=== PATIENT | female | born 1995 | race Caucasian/White ===

== ENCOUNTER 2020-06-26 12:05 | Outpatient (REF) | payer OTHER, SELFPAY ==
--- NOTE | 2020-06-26 11:50 | PAPFT_PTH ---
PATIENT: JOSEPH BERRIOS LOC: [facility] U#:[id number] AGE/SX: 25/F ROOM: RE06/26/[address]: Jennifer Yun APRN : 1995 BED: DIS: 06/26/2020 SPEC #: [id number] RECD: 06/26/20 18:25 STATUS: SAMMY REKeyona #: [id number] NOMI: 06/26/20 11:[address]: Jennifer Yun DEPT: [facility] Cytology RECD BY: [place] Pena Tissues: 1 - CX/ENDOCX FOR PAP SMEARS Procedures: PAP THIN PREP/[facility] Screening Comments: [id number]
== END 2020-06-26 12:25 ==
LOC: LBN 12:05
PROVIDERS: PCP Nurse Practitioner Adult Health; Visit Provider Nurse Practitioner Adult Health
DX: Z12.4 Encounter for screening for malignant neoplasm of cervix (principal)
CPT/HCPCS: 88142